=== PATIENT | female | born 1965 | race Caucasian/White ===

== ENCOUNTER 2018-01-02 05:46 | Inpatient (IN) | payer BC ==
[~2018-01-02] VITALS: Ht 177.8 cm; Wt 118.8 kg
[~2018-01-02 05:46] MED LIST: LEVO100T PO
[2018-01-02 08:19] VITALS: BP_SYST 142
[2018-01-02] MEDS ORDERED: MORPHINE 4 MG/ML INJ. SYRINGE IVP PRN (10:45)
[2018-01-02] MEDS ORDERED: METOCLOPRAMIDE HCL 10 MG/2 ML VIAL IVP PRN (10:45)
[2018-01-02] MEDS ORDERED: ONDANSETRON HCL 4 MG/2 ML VIAL IVP PRN (10:45)
[2018-01-02] MEDS ORDERED: LEVOTHYROXINE SODIUM 0.1 MG TABLET PO ONE (11:00)
[2018-01-02 11:09] LABS: BASOPHILS # (AUTO) 0.1 K/uL (0.0-0.2); BASOPHILS % (AUTO) 1.3 % (0.0-2.0); EOSINOPHILS % (AUTO) 0.5 % (0.0-4.0); HEMATOCRIT 43.8 % (36-48); LYMPHOCYTES # (AUTO) 0.7 K/uL (1.0-5.5); LYMPHOCYTES % (AUTO) 8.4 % (20.5-51.5); MEAN CORPUSCULAR HEMOGLOBIN 29 pg (27-31); MEAN CORPUSCULAR HGB CONC 32 % (32-36); MEAN CORPUSCULAR VOLUME 91 fL (79.0-98.0); MONOCYTES # (AUTO) 0.5 K/uL (0.0-1.0); MONOCYTES % (AUTO) 6.3 % (1.7-9.3); NEUTROPHILS # (AUTO) 6.5 K/uL (1.8-7.7); NEUTROPHILS % (AUTO) 83.5 % (40.0-70.0); PLATELET COUNT (AUTO) 215 K/uL (130-430); RED BLOOD CELL COUNT(AUTO) 4.79 MIL/uL (4.2-6.2); RED CELL DISTRIBUTION WIDTH 13.9 % (9.0-15.0); WHITE BLOOD COUNT (AUTO) 7.8 K/uL (4.8-10.8)
[2018-01-02 11:22] LABS: CALCIUM 8.8 mg/dL (8.4-11.0); CREATININE 0.74 mg/dL (0.55-1.30); POTASSIUM 3.8 mmol/L (3.5-5.1)
[2018-01-02] MEDS: D5NS 1,000 ML IV SCH ×2 (11:28→18:45)
[2018-01-02 11:36] LABS: ALBUMIN 3.2 g/dL (3.4-4.8); THYROID STIMULATING HORMONE 0.08 uIu/mL (0.36-3.74); TOTAL BILIRUBIN 1.9 mg/dL (0.0-1.0)
[2018-01-02] MEDS ORDERED: BARIUM SULFATE 135 ML SUSP.RECON (E-Z-HD) PO ONE (11:46)
[2018-01-02 12:00] VITALS: BP_SYST 113
[2018-01-02] MEDS ORDERED: GASTROGRAFIN 120 ML ONE (12:17)
[2018-01-02] MEDS ORDERED: DIATR MEGLU/DIATRIZ SOD 30 ML SOLUTION PO ONE (12:19)
[2018-01-02 16:00] VITALS: BP_SYST 144
[2018-01-02 19:15] VITALS: BP_SYST 127
[2018-01-03] MEDS: D5NS 1,000 ML IV SCH ×3 (03:02→18:45)
[2018-01-03] MEDS: LEVOTHYROXINE SODIUM 0.1 MG TABLET PO SCH (06:14)
[2018-01-03] MEDS: MORPHINE 4 MG/ML INJ. SYRINGE IVP PRN ×2 (06:17→11:30)
[2018-01-03 08:00] VITALS: BP_SYST 122
[2018-01-03 10:08] LABS: ALBUMIN 2.8 g/dL (3.4-4.8); BILIRUBIN,DIRECT 0.5 mg/dL (0.0-0.3); TOTAL BILIRUBIN 1.5 mg/dL (0.0-1.0)
[2018-01-03 12:00] VITALS: BP_SYST 129
[2018-01-03] MEDS ORDERED: ACETAMINOPHEN 325 MG TABLET PO PRN (15:30)
[2018-01-03 16:00] VITALS: BP_SYST 131
[2018-01-03 20:00] VITALS: BP_SYST 123
[2018-01-03 23:37] VITALS: BP_SYST 124
[2018-01-04] MEDS: D5NS 1,000 ML IV SCH ×2 (02:45→10:21)
[2018-01-04] MEDS: LEVOTHYROXINE SODIUM 0.1 MG TABLET PO SCH (06:10)
[2018-01-04 07:22] LABS: BASOPHILS % (AUTO) 0.2 % (0.0-2.0); EOSINOPHILS # (AUTO) 0.1 K/uL (0.0-0.4); EOSINOPHILS % (AUTO) 1.7 % (0.0-4.0); HEMATOCRIT 40.6 % (36-48); HEMOGLOBIN 13.1 g/dL (12.0-16.0); LYMPHOCYTES # (AUTO) 1.3 K/uL (1.0-5.5); LYMPHOCYTES % (AUTO) 19.9 % (20.5-51.5); MEAN CORPUSCULAR HEMOGLOBIN 30 pg (27-31); MEAN CORPUSCULAR HGB CONC 32 % (32-36); MEAN CORPUSCULAR VOLUME 92 fL (79.0-98.0); MONOCYTES # (AUTO) 0.6 K/uL (0.0-1.0); MONOCYTES % (AUTO) 8.6 % (1.7-9.3); NEUTROPHILS # (AUTO) 4.5 K/uL (1.8-7.7); NEUTROPHILS % (AUTO) 69.6 % (40.0-70.0); PLATELET COUNT (AUTO) 178 K/uL (130-430); RED CELL DISTRIBUTION WIDTH 13.6 % (9.0-15.0); WHITE BLOOD COUNT (AUTO) 6.5 K/uL (4.8-10.8)
[2018-01-04 07:47] VITALS: BP_SYST 130
[2018-01-04 08:01] LABS: ALBUMIN 2.7 g/dL (3.4-4.8); CALCIUM 8.8 mg/dL (8.4-11.0); CREATININE 0.69 mg/dL (0.55-1.30); POTASSIUM 3.3 mmol/L (3.5-5.1); TOTAL BILIRUBIN 1.3 mg/dL (0.0-1.0)
[2018-01-04 09:28] LABS: TOTAL IRON BIND. CAPACITY 414 ug/dL (250-450)
[2018-01-04 12:02] VITALS: BP_SYST 128
[2018-01-04 16:02] VITALS: BP_SYST 126
[2018-01-04 17:23] VITALS: BP_SYST 123
[2018-01-05 13:06] LABS: HEPATITIS A AB, IgM Negative (Negative); HEPATITIS B CORE AB, IgM Negative (Negative); HEPATITIS B SURFACE AG Negative (Negative)
[2018-01-05 14:15] LABS: FERRITIN 154 ng/mL (15-150)
[2018-01-05 20:09] LABS: ANTI NUCLEAR AB WITH REFLEX Negative (Negative)
== END 2018-01-04 18:40 | disposition home or self-care (01) | DRG 389 ==
LOC: SMU 07:55
PROVIDERS: ADMIT Internal Medicine Hospice and Palliative Medicine; ATTEND Internal Medicine Hospice and Palliative Medicine
DX: K56.600 Partial intestinal obstruction, unspecified as to cause (principal); Q61.3 Polycystic kidney, unspecified; E89.0 Postprocedural hypothyroidism; E11.9 Type 2 diabetes mellitus without complications; I10 Essential (primary) hypertension; G47.33 Obstructive sleep apnea (adult) (pediatric); K76.0 Fatty (change of) liver, not elsewhere classified; Z85.42 Personal history of malignant neoplasm of other parts of uterus; Z90.49 Acquired absence of other specified parts of digestive tract; Z90.710 Acquired absence of both cervix and uterus; Z99.2 Dependence on renal dialysis
CPT/HCPCS: 36415; 74018; 74181; 74250-TC; 76700-TC; 80053; 80074; 80076; 82390; 82728; 83516; 83540-TC; 83550-TC; 84443-TC; 85025; 86038; J2270; J7042; Q9963; Q9964

== ENCOUNTER 2020-03-11 19:31 | Emergency (ER) | payer BC ==
[~2020-03-11] VITALS: Ht 175.3 cm; Wt 127.0 kg
[2020-03-11 20:00] VITALS: BP_SYST 186
[2020-03-11] MEDS ORDERED: LEVO200T PO (20:24)
[2020-03-11] MEDS ORDERED: NACL 0.9% 1,000 ML IV ONE (20:30)
[2020-03-11] MEDS ORDERED: KETOROLAC TROMETHAMINE 30 MG VIAL IVP ONE (20:30)
[2020-03-11 21:37] LABS: BASOPHILS # (AUTO) 0.2 K/uL (0.0-0.2); BASOPHILS % (AUTO) 1.3 % (0.0-2.0); EOSINOPHILS # (AUTO) 0.1 K/uL (0.0-0.4); EOSINOPHILS % (AUTO) 0.5 % (0.0-4.0); HEMATOCRIT 43.6 % (36-48); HEMOGLOBIN 14.1 g/dL (12.0-16.0); LYMPHOCYTES # (AUTO) 1.3 K/uL (1.0-5.5); LYMPHOCYTES % (AUTO) 10.8 % (20.5-51.5); MEAN CORPUSCULAR HEMOGLOBIN 29 pg (27-31); MEAN CORPUSCULAR HGB CONC 32 % (32-36); MEAN CORPUSCULAR VOLUME 90 fL (79.0-98.0); MONOCYTES # (AUTO) 0.6 K/uL (0.0-1.0); MONOCYTES % (AUTO) 4.8 % (1.7-9.3); NEUTROPHILS # (AUTO) 10.2 K/uL (1.8-7.7); NEUTROPHILS % (AUTO) 82.6 % (40.0-70.0); PLATELET COUNT (AUTO) 201 K/uL (130-430); RED BLOOD CELL COUNT(AUTO) 4.87 MIL/uL (4.2-6.2); RED CELL DISTRIBUTION WIDTH 14.7 % (9.0-15.0); WHITE BLOOD COUNT (AUTO) 12.3 K/uL (4.8-10.8)
[2020-03-11 21:56] LABS: CALCIUM 9.5 mg/dL (8.4-11.0); CREATININE 0.81 mg/dL (0.55-1.30); POTASSIUM 4.1 mmol/L (3.5-5.1)
[2020-03-11 22:01] LABS: ALBUMIN 3.5 g/dL (3.4-4.8); TOTAL BILIRUBIN 0.6 mg/dL (0.0-1.0)
[2020-03-11 22:30] VITALS: BP_SYST 147
== END 2020-03-11 22:34 | disposition home or self-care (01) ==
LOC: SED 19:31
DX: R10.13 Epigastric pain (principal); Z85.3 Personal history of malignant neoplasm of breast; Z90.49 Acquired absence of other specified parts of digestive tract; Z79.899 Other long term (current) drug therapy
CPT/HCPCS: 36415; 74176; 76376; 80053; 85025; 87040; 96361; 96374; 99284; J7030

== ENCOUNTER 2021-09-07 18:22 | Inpatient (IN) | payer BC ==
[~2021-09-07] VITALS: Ht 175.3 cm; Wt 127.0 kg
[~2021-09-07 18:22] MED LIST changes: +LEVO200T PO
[2021-09-07 19:17] VITALS: BP_SYST 119
[2021-09-07 20:00] LABS: HEMATOCRIT 36.6 % (36-48); MEAN CORPUSCULAR HEMOGLOBIN 28 pg (27-31)
[2021-09-07] MEDS ORDERED: CLINDAMYCIN 600 mg/50mL D5W 50 ML IV ONE (20:00)
[2021-09-07 20:07] LABS: HEMOGLOBIN 12.3 g/dL (12.0-16.0); MEAN CORPUSCULAR HGB CONC 34 % (32-36); MEAN CORPUSCULAR VOLUME 83 fL (79.0-98.0); PLATELET COUNT (AUTO) 108 K/uL (130-430)
[2021-09-07 20:42] LABS: CALCIUM 8.1 mg/dL (8.4-11.0); CREATININE 0.89 mg/dL (0.55-1.30); POTASSIUM 3.3 mmol/L (3.5-5.1)
[2021-09-07 20:58] LABS: ALBUMIN 2.7 g/dL (3.4-4.8); C-REACTIVE PROTEIN QUANT 31.3 mg/dL (0-0.5); TOTAL BILIRUBIN 2.7 mg/dL (0.0-1.0)
[2021-09-07 21:25] LABS: ATYPICAL LYMPHOCYTES % 2 % (0-0); BAND % (MANUAL) 17 % (0-6); LYMPHOCYTES % (MANUAL) 26 % (20-46); MONOCYTES % (MANUAL) 19 % (0-11); MYELOCYTES % 1 % (0-0)
[2021-09-07] MEDS ORDERED: ACETAMINOPHEN 500 MG TABLET PO ONE (23:30)
[2021-09-07] MEDS ORDERED: POTASSIUM CHLORIDE 20 MEQ TAB.PRT.SR PO ONE (23:30)
[2021-09-08 00:11] VITALS: BP_SYST 119
[2021-09-08 08:00] VITALS: BP_SYST 128
[2021-09-08] MEDS ORDERED: ONDANSETRON HCL 4 MG/2 ML VIAL IVP PRN (10:00)
[2021-09-08] MEDS ORDERED: HYDROcodone/ACETAMIN 5-325 MG TAB (NORCO/ VICODIN) PO PRN (10:00)
[2021-09-08] MEDS ORDERED: NALOXONE HCL 0.4 MG/ML AMP (NARCAN) IVP PRN ×2 (10:00)
[2021-09-08] MEDS ORDERED: LORazepam 1 MG TABLET PO PRN (10:15)
[2021-09-08 12:00] VITALS: BP_SYST 117
[2021-09-08] MEDS ORDERED: CLINDAMYCIN 300 MG in D5W 50 ML IV SCH (12:00)
[2021-09-08] MEDS: HYDROcodone/ACETAMIN 10-325 MG TAB PO PRN (12:39)
[2021-09-08] MEDS: NORMAL SALINE 5 ML DISP.SYRIN IVF SCH ×2 (14:00→22:00)
[2021-09-08] MEDS ORDERED: NORMAL SALINE 5 ML DISP.SYRIN IVF SCH (14:00)
[2021-09-08 16:00] VITALS: BP_SYST 130
[2021-09-08 20:00] VITALS: BP_SYST 132
[2021-09-08] MEDS ORDERED: TBO-FILGRASTIM 480 MCG/0.8 ML SYRINGE SUBCUT SCH (21:30)
[2021-09-09] VITALS: BP_SYST 132
[2021-09-09] MEDS: CLINDAMYCIN 300 MG in D5W 50 ML IV SCH ×3 (01:32→08:37)
[2021-09-09] MEDS: ceFAZolin SODIUM 1 GM in D5W 50 ML IV SCH ×4 (01:33→22:35)
[2021-09-09 07:48] LABS: BASOPHILS % (AUTO) 0.7 % (0.0-2.0); EOSINOPHILS % (AUTO) 0.9 % (0.0-4.0); HEMOGLOBIN 11.5 g/dL (12.0-16.0); LYMPHOCYTES # (AUTO) 0.7 K/uL (1.0-5.5); LYMPHOCYTES % (AUTO) 37.7 % (20.5-51.5); MEAN CORPUSCULAR HEMOGLOBIN 28 pg (27-31); MEAN CORPUSCULAR HGB CONC 34 % (32-36); MEAN CORPUSCULAR VOLUME 84 fL (79.0-98.0); MONOCYTES # (AUTO) 0.6 K/uL (0.0-1.0); MONOCYTES % (AUTO) 31.7 % (1.7-9.3); PLATELET COUNT (AUTO) 117 K/uL (130-430); RED BLOOD CELL COUNT(AUTO) 4.07 MIL/uL (4.2-6.2); RED CELL DISTRIBUTION WIDTH 14.9 % (9.0-15.0)
[2021-09-09 07:53] LABS: NEUTROPHILS # (AUTO) 0.5 K/uL (1.8-7.7); WHITE BLOOD COUNT (AUTO) 1.8 K/uL (4.8-10.8)
[2021-09-09 08:00] VITALS: BP_SYST 130
[2021-09-09] MEDS: LEVOTHYROXINE SODIUM 0.1 MG TABLET PO SCH (08:36)
[2021-09-09 09:33] LABS: ALBUMIN 2.4 g/dL (3.4-4.8); CALCIUM 8.4 mg/dL (8.4-11.0); CREATININE 0.87 mg/dL (0.55-1.30); PHOSPHORUS 2.9 mg/dL (2.7-4.5); POTASSIUM 3.6 mmol/L (3.5-5.1); TOTAL BILIRUBIN 0.8 mg/dL (0.0-1.0)
[2021-09-09 10:43] LABS: TOTAL IRON BIND. CAPACITY 192 ug/dL (250-450)
[2021-09-09 12:00] VITALS: BP_SYST 128
[2021-09-09] MEDS: NORMAL SALINE 5 ML DISP.SYRIN IVF SCH ×2 (14:00→22:00)
[2021-09-09] MEDS: CLINDAMYCIN HCL 150 MG CAPSULE PO SCH ×2 (15:10→22:29)
[2021-09-09] MEDS: TBO-FILGRASTIM 480 MCG/0.8 ML SYRINGE SUBCUT SCH (16:23)
[2021-09-09 16:41] VITALS: BP_SYST 128
[2021-09-09] MEDS ORDERED: FLUCONAZOLE 200 mg/ NS 100 ML IV SCH ×2 (17:45→21:00)
[2021-09-09] MEDS: ACETAMINOPHEN 325 MG TABLET PO PRN (22:32)
[2021-09-10 00:09] VITALS: BP_SYST 128
[2021-09-10] MEDS: NORMAL SALINE 5 ML DISP.SYRIN IVF SCH ×3 (06:00→21:24)
[2021-09-10 08:00] VITALS: BP_SYST 130
[2021-09-10 08:06] LABS: FOLATE (FOLIC ACID) 15.1 ng/mL (>3.0)
[2021-09-10] MEDS: LEVOTHYROXINE SODIUM 0.1 MG TABLET PO SCH (08:31)
[2021-09-10] MEDS: CLINDAMYCIN HCL 150 MG CAPSULE PO SCH ×4 (08:31→20:07)
[2021-09-10] MEDS: ceFAZolin SODIUM 1 GM in D5W 50 ML IV SCH ×3 (08:37→21:24)
[2021-09-10] MEDS: ACETAMINOPHEN 325 MG TABLET PO PRN ×2 (09:16→20:07)
[2021-09-10] MEDS: FLUCONAZOLE 200 mg/ NS 100 ML IV SCH (09:24)
[2021-09-10 11:21] LABS: CREATININE 0.8 mg/dL (0.55-1.30); POTASSIUM 3.3 mmol/L (3.5-5.1)
[2021-09-10 12:42] VITALS: BP_SYST 139
[2021-09-10 15:04] LABS: BASOPHILS % (AUTO) 0.6 % (0.0-2.0); EOSINOPHILS % (AUTO) 0.3 % (0.0-4.0); HEMATOCRIT 37.2 % (36-48); HEMOGLOBIN 12.4 g/dL (12.0-16.0); LYMPHOCYTES # (AUTO) 0.8 K/uL (1.0-5.5); LYMPHOCYTES % (AUTO) 15.2 % (20.5-51.5); MEAN CORPUSCULAR HEMOGLOBIN 28 pg (27-31); MEAN CORPUSCULAR HGB CONC 33 % (32-36); MEAN CORPUSCULAR VOLUME 84 fL (79.0-98.0); MONOCYTES # (AUTO) 0.9 K/uL (0.0-1.0); MONOCYTES % (AUTO) 16.8 % (1.7-9.3); NEUTROPHILS # (AUTO) 3.5 K/uL (1.8-7.7); NEUTROPHILS % (AUTO) 67.1 % (40.0-70.0); PLATELET COUNT (AUTO) 168 K/uL (130-430); RED BLOOD CELL COUNT(AUTO) 4.45 MIL/uL (4.2-6.2); RED CELL DISTRIBUTION WIDTH 15.2 % (9.0-15.0); WHITE BLOOD COUNT (AUTO) 5.2 K/uL (4.8-10.8)
[2021-09-10] MEDS ORDERED: POTASSIUM CHLORIDE 20 MEQ TAB.PRT.SR PO ONE (15:30)
[2021-09-10 15:31] LABS: CALCIUM 8.9 mg/dL (8.4-11.0)
[2021-09-10] MEDS: TBO-FILGRASTIM 480 MCG/0.8 ML SYRINGE SUBCUT SCH (16:41)
[2021-09-10 16:45] VITALS: BP_SYST 131
[2021-09-10 20:00] VITALS: BP_SYST 156
[2021-09-11 00:16] VITALS: BP_SYST 137
[2021-09-11] MEDS: CLINDAMYCIN HCL 150 MG CAPSULE PO SCH ×4 (01:34→19:51)
[2021-09-11] MEDS: ceFAZolin SODIUM 1 GM in D5W 50 ML IV SCH ×3 (05:07→21:11)
[2021-09-11] MEDS: NORMAL SALINE 5 ML DISP.SYRIN IVF SCH ×3 (05:08→21:11)
[2021-09-11] MEDS: LEVOTHYROXINE SODIUM 0.1 MG TABLET PO SCH (06:08)
[2021-09-11 07:00] VITALS: BP_SYST 112
[2021-09-11 08:00] VITALS: BP_SYST 112
[2021-09-11 08:16] LABS: C-REACTIVE PROTEIN QUANT 16.1 mg/dL (0-0.5); CALCIUM 8.4 mg/dL (8.4-11.0); CREATININE 0.71 mg/dL (0.55-1.30); POTASSIUM 3.6 mmol/L (3.5-5.1)
[2021-09-11] MEDS: FLUCONAZOLE 200 mg/ NS 100 ML IV SCH (08:57)
[2021-09-11 12:00] VITALS: BP_SYST 111
[2021-09-11 12:12] LABS: HEMOGLOBIN 12.2 g/dL (12.0-16.0); MEAN CORPUSCULAR HEMOGLOBIN 28 pg (27-31); MEAN CORPUSCULAR HGB CONC 33 % (32-36); MEAN CORPUSCULAR VOLUME 84 fL (79.0-98.0); PLATELET COUNT (AUTO) 186 K/uL (130-430); RED BLOOD CELL COUNT(AUTO) 4.41 MIL/uL (4.2-6.2); RED CELL DISTRIBUTION WIDTH 15.5 % (9.0-15.0); WHITE BLOOD COUNT (AUTO) 14.9 K/uL (4.8-10.8)
[2021-09-11 13:27] LABS: BAND % (MANUAL) 13 % (0-6); BASOPHILS % (MANUAL) 0 % (0-2); EOSINOPHILS % (MANUAL) 0 % (0-7); LYMPHOCYTES % (MANUAL) 8 % (20-46); METAMYELOCYTES % 3 % (0-0); MONOCYTES % (MANUAL) 12 % (0-11)
[2021-09-11 13:28] LABS: ERYTHROCYTE SEDIMENTATION RATE 66 MM/HR (0-20)
[2021-09-11 16:17] VITALS: BP_SYST 124
[2021-09-11 20:00] VITALS: BP_SYST 139
[2021-09-12 00:11] VITALS: BP_SYST 124
[2021-09-12] MEDS: CLINDAMYCIN HCL 150 MG CAPSULE PO SCH ×2 (01:25→09:24)
[2021-09-12] MEDS: ceFAZolin SODIUM 1 GM in D5W 50 ML IV SCH ×3 (05:10→20:58)
[2021-09-12] MEDS: NORMAL SALINE 5 ML DISP.SYRIN IVF SCH ×3 (05:10→20:59)
[2021-09-12] MEDS: LEVOTHYROXINE SODIUM 0.1 MG TABLET PO SCH (06:05)
[2021-09-12 07:41] LABS: BASOPHILS # (AUTO) 0.1 K/uL (0.0-0.2); BASOPHILS % (AUTO) 0.4 % (0.0-2.0); EOSINOPHILS % (AUTO) 0.1 % (0.0-4.0); HEMATOCRIT 34.3 % (36-48); HEMOGLOBIN 11.5 g/dL (12.0-16.0); LYMPHOCYTES # (AUTO) 1.2 K/uL (1.0-5.5); LYMPHOCYTES % (AUTO) 8.4 % (20.5-51.5); MEAN CORPUSCULAR HEMOGLOBIN 28 pg (27-31); MEAN CORPUSCULAR HGB CONC 33 % (32-36); MEAN CORPUSCULAR VOLUME 84 fL (79.0-98.0); MONOCYTES # (AUTO) 1.2 K/uL (0.0-1.0); MONOCYTES % (AUTO) 8.4 % (1.7-9.3); NEUTROPHILS % (AUTO) 82.7 % (40.0-70.0); PLATELET COUNT (AUTO) 205 K/uL (130-430); RED BLOOD CELL COUNT(AUTO) 4.11 MIL/uL (4.2-6.2); RED CELL DISTRIBUTION WIDTH 15.5 % (9.0-15.0); WHITE BLOOD COUNT (AUTO) 14.5 K/uL (4.8-10.8)
[2021-09-12 08:36] LABS: ALBUMIN 2.3 g/dL (3.4-4.8); C-REACTIVE PROTEIN QUANT 12.6 mg/dL (0-0.5); CALCIUM 8.5 mg/dL (8.4-11.0); CREATININE 0.83 mg/dL (0.55-1.30); POTASSIUM 3.6 mmol/L (3.5-5.1); TOTAL BILIRUBIN 0.2 mg/dL (0.0-1.0)
[2021-09-12] MEDS: FLUCONAZOLE 200 mg/ NS 100 ML IV SCH (09:24)
[2021-09-12 09:57] VITALS: BP_SYST 125
[2021-09-12 11:24] VITALS: BP_SYST 136
[2021-09-12 12:24] LABS: ERYTHROCYTE SEDIMENTATION RATE 73 MM/HR (0-20)
[2021-09-12 16:32] VITALS: BP_SYST 131
[2021-09-12 20:14] VITALS: BP_SYST 130
[2021-09-13] MEDS: HYDROcodone/ACETAMIN 10-325 MG TAB PO PRN (03:17)
[2021-09-13] MEDS: ceFAZolin SODIUM 1 GM in D5W 50 ML IV SCH ×3 (05:19→20:00)
[2021-09-13] MEDS: NORMAL SALINE 5 ML DISP.SYRIN IVF SCH ×3 (05:19→20:01)
[2021-09-13 06:49] LABS: BASOPHILS # (AUTO) 0.1 K/uL (0.0-0.2); BASOPHILS % (AUTO) 0.5 % (0.0-2.0); EOSINOPHILS % (AUTO) 0.1 % (0.0-4.0); HEMATOCRIT 35.5 % (36-48); HEMOGLOBIN 11.8 g/dL (12.0-16.0); LYMPHOCYTES # (AUTO) 1.3 K/uL (1.0-5.5); LYMPHOCYTES % (AUTO) 11.7 % (20.5-51.5); MEAN CORPUSCULAR HEMOGLOBIN 28 pg (27-31); MEAN CORPUSCULAR HGB CONC 33 % (32-36); MEAN CORPUSCULAR VOLUME 84 fL (79.0-98.0); MONOCYTES # (AUTO) 1.2 K/uL (0.0-1.0); MONOCYTES % (AUTO) 10.9 % (1.7-9.3); NEUTROPHILS # (AUTO) 8.6 K/uL (1.8-7.7); NEUTROPHILS % (AUTO) 76.8 % (40.0-70.0); PLATELET COUNT (AUTO) 199 K/uL (130-430); RED BLOOD CELL COUNT(AUTO) 4.25 MIL/uL (4.2-6.2); RED CELL DISTRIBUTION WIDTH 15.6 % (9.0-15.0); WHITE BLOOD COUNT (AUTO) 11.2 K/uL (4.8-10.8)
[2021-09-13 06:57] LABS: C-REACTIVE PROTEIN QUANT 7.7 mg/dL (0-0.5); CALCIUM 8.5 mg/dL (8.4-11.0); CREATININE 0.64 mg/dL (0.55-1.30); POTASSIUM 3.6 mmol/L (3.5-5.1)
[2021-09-13 08:11] VITALS: BP_SYST 145
[2021-09-13] MEDS: LEVOTHYROXINE SODIUM 0.1 MG TABLET PO SCH (09:02)
[2021-09-13] MEDS: FLUCONAZOLE 200 mg/ NS 100 ML IV SCH (09:02)
[2021-09-13 10:30] LABS: ERYTHROCYTE SEDIMENTATION RATE 63 MM/HR (0-20)
[2021-09-13 14:32] VITALS: BP_SYST 145
[2021-09-13 16:00] VITALS: BP_SYST 118
[2021-09-13 20:00] VITALS: BP_SYST 150
[2021-09-14 00:34] VITALS: BP_SYST 149
[2021-09-14] MEDS: LEVOTHYROXINE SODIUM 0.1 MG TABLET PO SCH (05:29)
[2021-09-14] MEDS: ceFAZolin SODIUM 1 GM in D5W 50 ML IV SCH ×3 (05:29→20:58)
[2021-09-14] MEDS: NORMAL SALINE 5 ML DISP.SYRIN IVF SCH ×3 (05:30→20:58)
[2021-09-14 06:41] LABS: BASOPHILS % (AUTO) 0.4 % (0.0-2.0); HEMOGLOBIN 11.9 g/dL (12.0-16.0); LYMPHOCYTES # (AUTO) 1.2 K/uL (1.0-5.5); LYMPHOCYTES % (AUTO) 11.6 % (20.5-51.5); MEAN CORPUSCULAR HEMOGLOBIN 28 pg (27-31); MEAN CORPUSCULAR HGB CONC 34 % (32-36); MEAN CORPUSCULAR VOLUME 83 fL (79.0-98.0); MONOCYTES % (AUTO) 9.3 % (1.7-9.3); NEUTROPHILS # (AUTO) 8.1 K/uL (1.8-7.7); NEUTROPHILS % (AUTO) 78.7 % (40.0-70.0); PLATELET COUNT (AUTO) 222 K/uL (130-430); RED BLOOD CELL COUNT(AUTO) 4.21 MIL/uL (4.2-6.2); RED CELL DISTRIBUTION WIDTH 15.8 % (9.0-15.0); WHITE BLOOD COUNT (AUTO) 10.3 K/uL (4.8-10.8)
[2021-09-14 07:53] VITALS: BP_SYST 143
[2021-09-14] MEDS: FLUCONAZOLE 200 mg/ NS 100 ML IV SCH (08:30)
[2021-09-14 09:30] LABS: ALBUMIN 2.5 g/dL (3.4-4.8); CALCIUM 8.4 mg/dL (8.4-11.0); CREATININE 0.63 mg/dL (0.55-1.30); POTASSIUM 3.9 mmol/L (3.5-5.1); TOTAL BILIRUBIN 0.2 mg/dL (0.0-1.0)
[2021-09-14 09:38] LABS: ERYTHROCYTE SEDIMENTATION RATE 56 MM/HR (0-20)
[2021-09-14] MEDS ORDERED: ERTA1VIA3 IJ (10:16)
[2021-09-14 11:17] VITALS: BP_SYST 130
[2021-09-14 16:31] VITALS: BP_SYST 123
[2021-09-14] MEDS: ACETAMINOPHEN 325 MG TABLET PO PRN (23:28)
[2021-09-15] VITALS (7 sets, daily range): BP systolic 120–144
[2021-09-15] MEDS: ceFAZolin SODIUM 1 GM in D5W 50 ML IV SCH ×3 (06:10→20:23)
[2021-09-15] MEDS: LEVOTHYROXINE SODIUM 0.1 MG TABLET PO SCH (06:10)
[2021-09-15] MEDS: NORMAL SALINE 5 ML DISP.SYRIN IVF SCH ×2 (06:11→14:43)
[2021-09-15 06:36] LABS: BASOPHILS % (AUTO) 0.4 % (0.0-2.0); HEMATOCRIT 36.5 % (36-48); HEMOGLOBIN 12.3 g/dL (12.0-16.0); LYMPHOCYTES # (AUTO) 1.2 K/uL (1.0-5.5); LYMPHOCYTES % (AUTO) 13.1 % (20.5-51.5); MEAN CORPUSCULAR HEMOGLOBIN 28 pg (27-31); MEAN CORPUSCULAR HGB CONC 34 % (32-36); MEAN CORPUSCULAR VOLUME 84 fL (79.0-98.0); MONOCYTES # (AUTO) 0.9 K/uL (0.0-1.0); MONOCYTES % (AUTO) 9.7 % (1.7-9.3); NEUTROPHILS % (AUTO) 76.8 % (40.0-70.0); PLATELET COUNT (AUTO) 230 K/uL (130-430); RED BLOOD CELL COUNT(AUTO) 4.36 MIL/uL (4.2-6.2); RED CELL DISTRIBUTION WIDTH 15.9 % (9.0-15.0); WHITE BLOOD COUNT (AUTO) 9.1 K/uL (4.8-10.8)
[2021-09-15 07:06] LABS: CALCIUM 8.6 mg/dL (8.4-11.0); CREATININE 0.64 mg/dL (0.55-1.30); POTASSIUM 3.8 mmol/L (3.5-5.1)
[2021-09-15] MEDS: FLUCONAZOLE 200 mg/ NS 100 ML IV SCH (09:11)
[2021-09-15 12:09] LABS: ERYTHROCYTE SEDIMENTATION RATE 53 MM/HR (0-20)
== END 2021-09-15 21:54 | disposition home or self-care (01) | DRG 862 ==
LOC: SED 18:22 → SMU 22:10
PROVIDERS: ADMIT Preventive Medicine Preventive Medicine/Occupational Environmental Medicine; ATTEND Preventive Medicine Preventive Medicine/Occupational Environmental Medicine
PROC: 05HY33Z Insertion of Infusion Device into Upper Vein, Percutaneous Approach (ICD-10-PCS; 2021-09-09)
PROC: B54NZZA Ultrasonography of Left Upper Extremity Veins, Guidance (ICD-10-PCS; 2021-09-09)
PROC: 5A09357 Assistance with Respiratory Ventilation, Less than 24 Consecutive Hours, Continuous Positive Airway Pressure (ICD-10-PCS; principal; 2021-09-10)
DX: T81.41XA Infection following a procedure, superficial incisional surgical site, initial encounter (principal); E43 Unspecified severe protein-calorie malnutrition; R65.11 Systemic inflammatory response syndrome (SIRS) of non-infectious origin with acute organ dysfunction; L03.311 Cellulitis of abdominal wall; E87.1 Hypo-osmolality and hyponatremia; D61.818 Other pancytopenia; Z68.41 Body mass index [BMI] 40.0-44.9, adult; N61.0 Mastitis without abscess; D64.9 Anemia, unspecified; E66.01 Morbid (severe) obesity due to excess calories; E88.09 Other disorders of plasma-protein metabolism, not elsewhere classified; E87.6 Hypokalemia; E03.9 Hypothyroidism, unspecified; D69.6 Thrombocytopenia, unspecified; E83.52 Hypercalcemia; R73.9 Hyperglycemia, unspecified; Z20.822 Contact with and (suspected) exposure to COVID-19; Y83.8 Other surgical procedures as the cause of abnormal reaction of the patient, or of later complication, without mention of misadventure at the time of the procedure; T45.1X5A Adverse effect of antineoplastic and immunosuppressive drugs, initial encounter; D70.1 Agranulocytosis secondary to cancer chemotherapy; R50.81 Fever presenting with conditions classified elsewhere; Z85.3 Personal history of malignant neoplasm of breast; Z90.11 Acquired absence of right breast and nipple; Z79.899 Other long term (current) drug therapy; Y92.89 Other specified places as the place of occurrence of the external cause
CPT/HCPCS: 36415; 71250-TC; 76376; 76642; 80048; 80053; 82607; 82728; 82746; 83540; 83550; 83605; 83735; 84100; 85007; 85025; 85027; 85651-TC; 86140; 87040; 87070-TC; 87075-TC; 87081; 94660; 94760; 96365; 99285; J0690; J1447; J1450; J3490; J7060

== ENCOUNTER 2022-08-11 01:21 | Inpatient (IN) | payer BC ==
[~2022-08-11] VITALS: Ht 175.3 cm; Wt 126.1 kg
[~2022-08-11 01:21] MED LIST changes: +ERTA1VIA3 IJ; -LEVO100T PO
[2022-08-11 01:37] VITALS: BP_SYST 135; PULSE 99; RESP 20; TEMP 97.9; O2SAT 96
[2022-08-11] MEDS ORDERED: KETOROLAC TROMETHAMINE 30 MG VIAL IM ONE (02:00)
[2022-08-11 02:15] LABS: BASOPHILS % (AUTO) 0.3 % (0.0-2.0); EOSINOPHILS # (AUTO) 0.1 K/uL (0.0-0.4); EOSINOPHILS % (AUTO) 0.9 % (0.0-4.0); HEMOGLOBIN 14.6 g/dL (12.0-16.0); LYMPHOCYTES # (AUTO) 1.4 K/uL (1.0-5.5); LYMPHOCYTES % (AUTO) 12.3 % (20.5-51.5); MEAN CORPUSCULAR HEMOGLOBIN 29 pg (27-31); MEAN CORPUSCULAR HGB CONC 33 % (32-36); MEAN CORPUSCULAR VOLUME 87 fL (79.0-98.0); MONOCYTES # (AUTO) 0.8 K/uL (0.0-1.0); MONOCYTES % (AUTO) 6.6 % (1.7-9.3); NEUTROPHILS # (AUTO) 9.2 K/uL (1.8-7.7); NEUTROPHILS % (AUTO) 79.9 % (40.0-70.0); PLATELET COUNT (AUTO) 203 K/uL (130-430); RED BLOOD CELL COUNT(AUTO) 5.09 MIL/uL (4.2-6.2); RED CELL DISTRIBUTION WIDTH 16.4 % (9.0-15.0); WHITE BLOOD COUNT (AUTO) 11.6 K/uL (4.8-10.8)
[2022-08-11 02:24] LABS: CALCIUM 8.8 mg/dL (8.4-11.0); CREATININE 0.8 mg/dL (0.55-1.30)
[2022-08-11 02:27] LABS: ALBUMIN 3.4 g/dL (3.4-4.8)
[2022-08-11] MEDS ORDERED: GLIP5TAB13 PO (05:12)
[2022-08-11] MEDS ORDERED: D5/0.45 NS 1,000 ML IV ONE (05:30)
[2022-08-11 05:59] LABS: BILIRUBIN,URINE NEGATIVE (NEGATIVE); BLOOD, URINE NEGATIVE (NEGATIVE); COLOR,URINE YELLOW (YELLOW); GLUCOSE,URINE NEGATIVE (NEGATIVE); KETONES,URINE NEGATIVE (NEGATIVE); LEUKOCYTE ESTERASE ,URINE TRACE (NEGATIVE); NITRITE, URINE NEGATIVE (NEGATIVE); PROTEIN URINE NEGATIVE (NEGATIVE); UROBILINOGEN,URINE 0.2 (0.2-1.0)
[2022-08-11 06:10] LABS: CLARITY/URINE SLIGHTLY CLOUDY (CLEAR)
[2022-08-11 06:11] LABS: BACTERIA,URINE FEW /HPF (None Seen); RBC,URINE 0-3 /HPF (0-3)
[2022-08-11 09:16] VITALS: BP_SYST 136; PULSE 77; RESP 18; TEMP 98.5
[2022-08-11] MEDS ORDERED: MORPHINE 4 MG INJ. 4 MG/ML VIAL IVP PRN (10:00)
[2022-08-11] MEDS ORDERED: LORazepam 2 MG/ML VIAL IVP PRN (10:00)
[2022-08-11] MEDS ORDERED: INSULIN REGULAR, HUMAN 100 UNITS/ML, 3 ML VIAL (humuLIN R) SUBCUT PRN (10:00)
[2022-08-11] MEDS ORDERED: ONDANSETRON HCL 4 MG/2 ML VIAL IVP PRN (10:00)
[2022-08-11] MEDS ORDERED: MORPHINE 2 MG/ML INJ. SYRINGE IVP PRN (10:00)
[2022-08-11] MEDS ORDERED: NALOXONE HCL 0.4 MG/ML AMP (NARCAN) IVP PRN (10:00)
[2022-08-11] MEDS ORDERED: GASTROGRAFIN 120 ML ONE (15:18)
[2022-08-11 16:00] VITALS: BP_SYST 126; PULSE 64; RESP 18; TEMP 98; O2SAT 96
[2022-08-11] MEDS: VANCOMYCIN HCL 1,000 MG in NS 250 ML IV SCH (18:11)
[2022-08-11 19:00] VITALS: BP_SYST 118; PULSE 74; RESP 16; TEMP 97.7; O2SAT 96
[2022-08-11 20:00] VITALS: BP_SYST 118; PULSE 74; RESP 16; TEMP 97.7; O2SAT 96
[2022-08-11] MEDS: CEFEPIME 1 GM in D5W 50 ML IV SCH (21:00)
[2022-08-12] VITALS: BP_SYST 116; PULSE 76; RESP 16; TEMP 97.6; O2SAT 96
[2022-08-12] MEDS: VANCOMYCIN HCL 1,000 MG in NS 250 ML IV SCH ×2 (06:00→12:05)
[2022-08-12 06:20] LABS: BASOPHILS % (AUTO) 0.2 % (0.0-2.0); EOSINOPHILS # (AUTO) 0.1 K/uL (0.0-0.4); EOSINOPHILS % (AUTO) 1.4 % (0.0-4.0); HEMATOCRIT 43.6 % (36-48); HEMOGLOBIN 14.1 g/dL (12.0-16.0); LYMPHOCYTES # (AUTO) 1.6 K/uL (1.0-5.5); LYMPHOCYTES % (AUTO) 16.9 % (20.5-51.5); MEAN CORPUSCULAR HEMOGLOBIN 29 pg (27-31); MEAN CORPUSCULAR HGB CONC 32 % (32-36); MEAN CORPUSCULAR VOLUME 88 fL (79.0-98.0); MONOCYTES # (AUTO) 0.7 K/uL (0.0-1.0); MONOCYTES % (AUTO) 7.5 % (1.7-9.3); NEUTROPHILS # (AUTO) 7.2 K/uL (1.8-7.7); PLATELET COUNT (AUTO) 187 K/uL (130-430); RED BLOOD CELL COUNT(AUTO) 4.96 MIL/uL (4.2-6.2); RED CELL DISTRIBUTION WIDTH 16.6 % (9.0-15.0); WHITE BLOOD COUNT (AUTO) 9.7 K/uL (4.8-10.8)
[2022-08-12 06:43] LABS: CALCIUM 8.6 mg/dL (8.4-11.0); CREATININE 0.54 mg/dL (0.55-1.30)
[2022-08-12] MEDS: ACETAMINOPHEN 325 MG TABLET PO PRN ×2 (07:01→21:13)
[2022-08-12 09:21] VITALS: BP_SYST 110; PULSE 75; RESP 14; TEMP 97.4; O2SAT 96
[2022-08-12 11:55] VITALS: BP_SYST 130; PULSE 77; RESP 18; TEMP 98.6; O2SAT 96
[2022-08-12] MEDS: CEFEPIME 1 GM in D5W 50 ML IV SCH ×2 (12:06→21:17)
[2022-08-12] MEDS: ENOXAPARIN SODIUM 40 MG/0.4 ML SYRINGE SUBCUT SCH (12:06)
[2022-08-12] MEDS: D5/0.45 NS 1,000 ML IV SCH ×2 (12:36→20:15)
[2022-08-12 18:09] VITALS: BP_SYST 139; PULSE 83; RESP 17; TEMP 98.1; O2SAT 95
[2022-08-12 20:00] VITALS: BP_SYST 118; PULSE 73; RESP 18; TEMP 97.6; O2SAT 96
[2022-08-13] VITALS: BP_SYST 134; PULSE 68; RESP 16; TEMP 97.2; O2SAT 96
[2022-08-13 04:35] VITALS: BP_SYST 120; PULSE 90; RESP 20; TEMP 97.8; O2SAT 97
[2022-08-13 06:04] LABS: BASOPHILS # (AUTO) 0.1 K/uL (0.0-0.2); BASOPHILS % (AUTO) 0.8 % (0.0-2.0); EOSINOPHILS # (AUTO) 0.2 K/uL (0.0-0.4); EOSINOPHILS % (AUTO) 1.9 % (0.0-4.0); HEMATOCRIT 44.4 % (36-48); HEMOGLOBIN 14.2 g/dL (12.0-16.0); LYMPHOCYTES # (AUTO) 1.7 K/uL (1.0-5.5); MEAN CORPUSCULAR HEMOGLOBIN 28 pg (27-31); MEAN CORPUSCULAR HGB CONC 32 % (32-36); MEAN CORPUSCULAR VOLUME 88 fL (79.0-98.0); MONOCYTES # (AUTO) 0.6 K/uL (0.0-1.0); MONOCYTES % (AUTO) 7.4 % (1.7-9.3); NEUTROPHILS # (AUTO) 5.7 K/uL (1.8-7.7); NEUTROPHILS % (AUTO) 68.9 % (40.0-70.0); PLATELET COUNT (AUTO) 187 K/uL (130-430); RED BLOOD CELL COUNT(AUTO) 5.04 MIL/uL (4.2-6.2); RED CELL DISTRIBUTION WIDTH 16.3 % (9.0-15.0); WHITE BLOOD COUNT (AUTO) 8.3 K/uL (4.8-10.8)
[2022-08-13 06:50] LABS: CALCIUM 8.4 mg/dL (8.4-11.0); CREATININE 0.62 mg/dL (0.55-1.30)
[2022-08-13] MEDS: VANCOMYCIN HCL 1,000 MG in NS 250 ML IV SCH (06:57)
[2022-08-13] MEDS: D5/0.45 NS 1,000 ML IV SCH (07:00)
[2022-08-13 08:00] VITALS: O2SAT 99
[2022-08-13 09:09] LABS: ERYTHROCYTE SEDIMENTATION RATE 44 MM/HR (0-20)
[2022-08-13] MEDS: CEFEPIME 1 GM in D5W 50 ML IV SCH (09:52)
[2022-08-13] MEDS: ENOXAPARIN SODIUM 40 MG/0.4 ML SYRINGE SUBCUT SCH (09:53)
[2022-08-13 11:58] VITALS: BP_SYST 142; PULSE 77; RESP 18; TEMP 98.2; O2SAT 95
[2022-08-13 14:53] VITALS: BP_SYST 142; PULSE 77; RESP 18; TEMP 97.7
[2022-08-13] MEDS ORDERED: VANCOMYCIN HCL 1,500 MG in NS 250 ML IV SCH (18:00)
== END 2022-08-13 15:15 | disposition home or self-care (01) | DRG 690 ==
LOC: SED 01:21 → SMU 05:16
PROVIDERS: ADMIT Preventive Medicine Preventive Medicine/Occupational Environmental Medicine; ATTEND Preventive Medicine Preventive Medicine/Occupational Environmental Medicine
DX: N39.0 Urinary tract infection, site not specified (principal); Z68.41 Body mass index [BMI] 40.0-44.9, adult; I10 Essential (primary) hypertension; E03.9 Hypothyroidism, unspecified; R73.9 Hyperglycemia, unspecified; G47.33 Obstructive sleep apnea (adult) (pediatric); D72.829 Elevated white blood cell count, unspecified; E66.01 Morbid (severe) obesity due to excess calories; Z90.11 Acquired absence of right breast and nipple; Z85.42 Personal history of malignant neoplasm of other parts of uterus; Z85.3 Personal history of malignant neoplasm of breast
CPT/HCPCS: 36415; 74250-TC; 76376; 80048; 80053; 80202; 81000; 83690; 85025; 85651-TC; 87040; 87081; 87086; 96360; 96372; 99285; J0692; J1650; J1885; J2270; J3370; J7050; J7060; Q9963